=== PATIENT | male | born 1960 | race Hispanic/Latino ===

== ENCOUNTER 2020-06-26 16:12 | Inpatient (IN) | payer SELFPAY ==
--- OUTSIDE RECORDS SUMMARY | 2020-06-26 16:14 | XMS REPORT | Continuity of Care Document ---
:1960 Author Organization [facility] t Address [address] [place] [address] [address] [place] [address] Care Team Providers Name Role Phone Unavailable Unavailable Unavailable Problems This patient has no known problems. Allergies, Adverse Reactions, Alerts This patient has no known allergies or adverse reactions. Medications This patient has no known medications. Procedures This patient has no known procedures. Encounters Start End Encounter Admission Attending Care Care Encounter Source Date/Time Date/Time Type Type Clinicians Facility Department ID 2019-06-22 2019-06-22 Emergency E [id number] [facility] 17:46:00 17:46:00 Results This patient has no known results.
[2020-06-26] MEDS ORDERED: ALBUTEROL INHALER 60 PUFF/8 GM IH ONE (19:10)
[2020-06-26] MEDS ORDERED: METHYLPREDNISOLONE 40 MG INJ ONE (19:10)
[2020-06-26 19:11] LABS: Absolute Lymphocytes (CBC) 0.5 K/uL (0.7-4.9); Basophils % 0.2 % (0-1.3); Hematocrit 43.5 % (39.6-49.0); Lymphocytes % 5.2 % (15.3-44.8); MPV 8.4 fL (7.6-11.3); RBC Red Blood Cell Count 4.81 M/uL (4.33-5.43)
[2020-06-26 19:13] LABS: Protime INR 1.11
[2020-06-26 19:28] LABS: ALT/SGPT 37 U/L (12-78); AST/SGOT 44 U/L (15-37); Albumin 3.1 g/dL (3.4-5.0); Alkaline Phosphatase 118 U/L (45-117); BUN Blood Urea Nitrogen 17 mg/dL (7-18); Bicarbonate 25 mmol/L (21-32); Bilirubin Direct 0.1 mg/dL (0-0.2); Bilirubin Total 0.5 mg/dL (0.2-1.0); Glucose Level 121 mg/dL (74-106); Magnesium 2.7 mg/dL (1.8-2.4); NT PRO-BNP 177 pg/mL (<125); Potassium 4.3 mmol/L (3.5-5.1); Protein, Total 8.2 g/dL (6.4-8.2); Sodium Level 134 mmol/L (136-145); Troponin (Emerg Dept Use Only) < 0.02 ng/mL (0.0-0.045)
[2020-06-26 19:31] LABS: Blood Morphology Comment NOT SEEN (NOT SEEN); Platelet Estimate ADEQ; White Blood Cell Scan OK (OK)
[2020-06-26 20:48] LABS: SARS-COV-2 RT PCR POSITIVE (NEGATIVE)
--- NOTE | 2020-06-26 20:53 | RAD REPORT ---
EXAM DESCRIPTION: RAD - Chest Single View - 06/26/2020 6:36 pm CLINICAL HISTORY: Cough;SOB, spouse is COVID positive COMPARISON: None TECHNIQUE: AP portable chest image was obtained 06/26/2020 6:36 pm . FINDINGS: Lung volumes are low. Bilateral peripheral airspace opacification present worse on the lef t. Upper lung lopez are generally spared. Heart size is mostly obscured by the low lung volumes. No acute vascular engorgement. No measurable pleural effusion and no pneumothorax. No acute bony abnorma lity seen. No acute aortic findings suspected. IMPRESSION: Mild bilateral COVID-19 pneumonia pattern.
--- NOTE | 2020-06-26 21:11 | EDPHYS ---
Physician Documentation [facility] Name: Zafar Meyer Age: 60 yrs Sex: Male : 1960 Arrival Date: 06/26/2020 Time: 16:14 Bed 6 Private MD: Dk Gaytan ED Physician Rodney Palomino HPI: 06/26 18:25 This 60 yrs old Male presents to ER via Wheelchair with complaints of cp Breathing Difficulty, R/O COVID. 18:25 The patient has shortness of breath at rest. cp 18:25 Onset: The symptoms/episode began/occurred 5 day(s) ago. Duration: The symptoms are cp continuous, and are steadily getting worse. The patient's shortness of breath is aggravated by light activity. Associated signs and symptoms: Pertinent positives: non-productive cough, Pertinent negatives: chest pain, fever, vomiting. Patient reports tested positive for COVID-19. Historical: - Allergies: 16:28 No Known Allergies; ca1 - Home Meds: 16:28 None [Active]; ca1 - PMHx: 16:28 High Cholesterol; ca1 - PSHx: 16:28 None; ca1 - Immunization history:: Pneumococcal vaccine is not up to date, Flu vaccine is not up to date. - Social history:: Smoking status: Patient/guardian denies using tobacco, the patient reports quitting approximately 4 years ago. ROS: 18:30 Constitutional: Negative for body aches, fever, poor PO intake. cp 18:30 Eyes: Negative for injury, pain, redness, and discharge. cp 18:30 ENT: Negative for ear pain, sore throat, difficulty swallowing, difficulty handling secretions. 18:30 Cardiovascular: Negative for chest pain, edema, palpitations. 18:30 Respiratory: Positive for cough, "sounds productive", shortness of breath, at rest. Negative for wheezing. 18:30 Abdomen/GI: Negative for abdominal pain, nausea, vomiting, and diarrhea, anorexia. 18:30 : Negative for urinary symptoms. 18:30 Skin: Negative for cellulitis, rash. 18:30 Neuro: Negative for altered mental status, headache, syncope, weakness. 18:30 All other systems are negative. Exam: 18:35 Constitutional: The patient appears in no acute distress, alert, awake, cp non-diaphoretic, non-toxic, well developed, well nourished. 18:35 Head/Face: Normocephalic, atraumatic. cp 18:35 Eyes: Periorbital structures: appear normal, Conjunctiva: normal, no exudate, no injection, Sclera: no appreciated abnormality, Lids and lashes: appear normal, bilaterally. 18:35 ENT: External ear(s): are unremarkable, Nose: is normal, Mouth: Lips: moist, Oral mucosa: pink and intact, moist, Posterior pharynx: Airway: no evidence of obstruction, patent, swelling, is not appreciated, erythema, is not appreciated, exudate, is not appreciated. 18:35 Neck: ROM/movement: is normal, is supple, without pain, no range of motions limitations, no meningismus. 18:35 Chest/axilla: Inspection: normal, Palpation: is normal, no crepitus, no tenderness. 18:35 Cardiovascular: Rate: normal, Rhythm: regular, Edema: is not appreciated, JVD: is not appreciated. 18:35 Respiratory: mild respiratory distress is noted, Respirations: labored breathing, that is mild, intercostal retractions, are absent, Breath sounds: bronchial sounds, that are mild, are heard diffusely, stridor, is not appreciated, wheezing: is not appreciated. 18:35 Abdomen/GI: Inspection: abdomen appears normal, Palpation: abdomen is soft and non-tender, in all quadrants. 18:35 Back: pain, is absent, ROM is normal. 18:35 Neuro: Orientation: to person, place \\T\\ time. Mentation: is normal, Motor: moves all fours, strength is normal. 18:54 ECG was reviewed by the Attending Physician. cp Vital Signs: 16:24 BP 137 / 73; Pulse 90; Resp 18 S; Temp 99(TE); Pulse Ox 93% on R/A; Weight 88.45 kg; ca1 Height 5 ft. 11 in. (180.34 cm) (R); Pain 0/10; 19:00 BP 132 / 66; Pulse 92; Resp 19; Pulse Ox 93% on R/A; hb 20:18 Pulse Ox 86% on R/A; ea 20:26 BP 146 / 63; Pulse 85; Resp 22; Pulse Ox 95% on 2 lpm NC; ea 22:31 BP 126 / 76; Pulse 82; Resp 22; Pulse Ox 97% on 3 lpm NC; ea 16:24 Body Mass Index 27.20 (88.45 kg, 180.34 cm) ca1 20:18 pt placed on 2 L per nasal cannula ea MDM: 18:15 Patient medically screened. cp 18:30 Differential diagnosis: pneumonia, Pneumothorax pulmonary edema, Pulmonary Embolism cp Sepsis. 20:20 ED course: VSS. Patient ambulated in ED and oxygen sats dropped to 86% on RA. Will cp admit for continued treatment. 20:20 Data reviewed: vital signs, nurses notes, lab test result(s), EKG, radiologic studies, cp plain films, and as a result, I will admit patient. Test interpretation: by ED physician or midlevel provider: ECG, plain radiologic studies. Response to treatment: the patient's symptoms have mildly improved after treatment. 21:00 Physician consultation: Jag ALEMAN was called at 21:00, was contacted at 21:00, cp regarding admission, to the telemetry unit. patient's condition. 06/26 18:21 Order name: Basic Metabolic Panel; Complete Time: 19:41 06/26 19:41 Interpretation: Normal except: NA 134; GLUC 121; GFR 84. 06/26 18:21 Order name: CBC with Diff; Complete Time: 19:41 06/26 20:11 Interpretation: Normal except: KRISTIAN% 89.2; LYM% 5.2; LYMA 0.5. 06/26 18:21 Order name: LFT's; Complete Time: 19:41 06/26 19:41 Interpretation: Normal except: AST 44; ALK 118; ALB 3.1; GLOB 5.1; A/G 0.6. 06/26 18:21 Order name: Magnesium; Complete Time: 19:41 cp 06/26 18:21 Order name: NT PRO-BNP; Complete Time: 19:41 cp 06/26 18:21 Order name: PT-INR; Complete Time: 19:17 cp 06/26 19:18 Interpretation: Reviewed. 06/26 18:21 Order name: Troponin (emerg Dept Use Only); Complete Time: 19:41 06/26 19:42 Interpretation: TROPED < 0.02; Reviewed. 06/26 19:27 Order name: CBC Smear Scan; Complete Time: 19:41 EDMS 06/26 20:12 Order name: D-Dimer cp 06/26 20:12 Order name: LAB Add On cp 06/26 20:13 Order name: D-Dimer; Complete Time: 20:56 EDMS 06/26 20:48 Order name: COVID-19/FLU A+B; Complete Time: 20:56 EDMS 06/26 18:21 Order name: XRAY Chest (1 view); Complete Time: 20:56 cp 06/26 18:21 Order name: EKG; Complete Time: 18:23 cp 06/26 18:21 Order name: Cardiac monitoring; Complete Time: 18:57 cp 06/26 18:21 Order name: EKG - Nurse/Tech; Complete Time: 18:57 cp 06/26 18:21 Order name: IV Saline Lock; Complete Time: 18:57 cp 06/26 18:21 Order name: Labs collected and sent; Complete Time: 18:57 cp 06/26 20:56 Order name: CT Chest For PE Angio cp 06/26 20:56 Order name: CRP; Complete Time: 03:13 cp 06/26 20:56 Order name: Ferritin 06/27 09:09 Order name: CBC with Automated Diff EDWV 06/27 09:46 Order name: Basic Metabolic Panel EDWV 06/27 09:46 Order name: C-Reactive Protein EDWV 06/27 09:46 Order name: Magnesium EDWV 06/27 09:46 Order name: Ferritin EDWV 06/26 18:21 Order name: O2 Per Protocol; Complete Time: 18:59 cp 06/26 18:21 Order name: O2 Sat Monitoring; Complete Time: 18:59 cp EC:54 Rate is 86 beats/min. Rhythm is regular. NM interval is normal. QRS interval is normal. cp QT interval is normal. Interpreted by me. Reviewed by me. Administered Medications: 18:57 Drug: SOLU-Medrol 80 mg Route: IVP; Site: right antecubital; hb 22:33 Follow up: Response: No adverse reaction ea 18:59 Drug: Albuterol HFA Inhaler 2 puffs Route: Inhalation; hb Disposition: 06/26/20 21:11 Hospitalization ordered by Ai Stiles for Inpatient Admission. Preliminary diagnosis are Pneumonia due to other specified infectious organisms, Hypoxemia, Coronavirus infection, unspecified. - Bed requested for Telemetry/MedSurg (observation). - Status is Inpatient Admission. ea - Condition is Stable. - Problem is new. - Symptoms have improved. Addendum: 06/29/2020 06:25 Co-signature as Attending Physician, Rodney Palomino MD I agree with the assessment and t w4 plan of care. Signatures: Dispatcher [employer] EDMS KikiyoungJag, LINE DEPARTMENT SUPERVISOR-C LINE DEPARTMENT SUPERVISOR-Cla1 Ron Li PA PA cp Sun Velazquez, RN RN cg Shelby Rush, ALEYDA MAYNARD Shea Owen RN Rodney Middleton ea, MD MD tw4 Nuha Flores RN RN ca1 Corrections: (The following items were deleted from the chart) 06/26 19:49 18:23 Influenza Screen (A \\T\\ B)+BA.LAB.BRZ ordered. EDWV EDMS 19:49 18:23 CORONAVIRUS+MR.LAB.BRZ ordered. EDWV EDMS 20:11 19:41 Normal except: KRISTIAN% 89.2; LYM% 5.2. cp cp 22:00 21:11 Hospitalization Ordered by Ai Stiles MD for Inpatient Admission. Preliminary cg diagnosis is Pneumonia due to other specified infectious organisms; Hypoxemia; Coronavirus infection, unspecified. Bed requested for Telemetry/MedSurg (Inpatient). Status is Inpatient Admission. Condition is Stable. Problem is new. Symptoms have improved. cp 06/27 19:16 06/26 22:00 06/26/2020 21:11 Hospitalization Ordered by Ai Stiles MD for Inpatient cg Admission. Preliminary diagnosis is Pneumonia due to other specified infectious organisms; Hypoxemia; Coronavirus infection, unspecified. Bed requested for [facility] ER HOLD. Status is Inpatient Admission. Condition is Stable. Problem is new. Symptoms have improved. cg 06/27 20:36 19:16 06/26/2020 21:11 Hospitalization Ordered by Ai Stiles MD for Inpatient ea Admission. Preliminary diagnosis is Pneumonia due to other specified infectious organisms; Hypoxemia; Coronavirus infection, unspecified. Bed requested for Telemetry/MedSurg (observation). Status is Inpatient Admission. Condition is Stable. Problem is new. Symptoms have improved. cg
--- NOTE | 2020-06-26 21:11 | ER ---
Nurse's Notes [facility] Name: Zafar Meyer Age: 60 yrs Sex: Male : 1960 Arrival Date: 06/26/2020 Time: 16:14 Bed 6 Private MD: Dk Gaytan Diagnosis: Pneumonia due to other specified infectious organisms;Hypoxemia;Coronavirus infection, unspecified Presentation: 06/26 16:24 Chief complaint: Patient's son or daughter states: Daughter: My mom's admitted for ca1 Covid-19+. My dad started having SOB x 5 days. Coronavirus screen: Client denies travel out of the [place] in the last 14 days. chills, cough unrelated to allergies, diarrhea, difficulty breathing, fatigue, headache, muscle pain, nausea, shortness of breath, sore throat, Client presents with at least one sign or symptom that may indicate coronavirus-19. Standard/surgical mask placed on the client. Provider contacted for isolation considerations. The client denies any previous COVID testing. Ebola Screen: Patient negative for fever greater than or equal to 101.5 degrees Fahrenheit, and additional compatible Ebola Virus Disease symptoms Patient denies exposure to infectious person. Patient denies travel to an Ebola-affected area in the 21 days before illness onset. No symptoms or risks identified at this time. Initial Sepsis Screen: Does the patient meet any 2 criteria? No. Patient's initial sepsis screen is negative. Does the patient have a suspected source of infection? No. Patient's initial sepsis screen is negative. Risk Assessment: Do you want to hurt yourself or someone else? Patient reports no desire to harm self or others. Onset of symptoms was June 26, 2020. 16:24 Method Of Arrival: Wheelchair ca1 16:24 Acuity: ALPHONSE 3 ca1 Historical: - Allergies: 16:28 No Known Allergies; ca1 - Home Meds: 16:28 None [Active]; ca1 - PMHx: 16:28 High Cholesterol; ca1 - PSHx: 16:28 None; ca1 - Immunization history:: Pneumococcal vaccine is not up to date, Flu vaccine is not up to date. - Social history:: Smoking status: Patient/guardian denies using tobacco, the patient reports quitting approximately 4 years ago. Screenin:18 Abuse screen: Denies threats or abuse. Denies injuries from another. Nutritional hb screening: No deficits noted. Tuberculosis screening: No symptoms or risk factors identified. Fall Risk None identified. Assessment: 18:18 General: Appears in no apparent distress. Behavior is calm, cooperative. Pain: Denies hb pain. Neuro: Level of Consciousness is awake, alert, obeys commands, Oriented to person, place, time, situation. Cardiovascular: Capillary refill < 3 seconds Patient's skin is warm and dry. Rhythm is regular. Respiratory: Reports shortness of breath at rest cough that is non-productive, Airway is patent Trachea midline Respiratory effort is even, unlabored, Breath sounds are clear bilaterally. GI: No signs and/or symptoms were reported involving the gastrointestinal system. : No signs and/or symptoms were reported regarding the genitourinary system. EENT: No signs and/or symptoms were reported regarding the EENT system. Derm: Skin is pink, warm \T\ dry. Musculoskeletal: No signs and/or symptoms reported regarding the musculoskeletal system. 20:25 Reassessment: Pt ambulated approximately 50 ft, pt sats at 86% RA. Pt placed on 2 L per ea nasal cannula tolerating well. 20:37 Reassessment: Jennifer (daughter) [phone]. ea 22:31 Reassessment: Patient and/or family updated on plan of care and expected duration. Pain ea level reassessed. Patient is alert, oriented x 3, equal unlabored respirations, skin warm/dry/pink. Pt admitted to ED Hold. Vital Signs: 16:24 BP 137 / 73; Pulse 90; Resp 18 S; Temp 99(TE); Pulse Ox 93% on R/A; Weight 88.45 kg; ca1 Height 5 ft. 11 in. (180.34 cm) (R); Pain 0/10; 19:00 BP 132 / 66; Pulse 92; Resp 19; Pulse Ox 93% on R/A; hb 20:18 Pulse Ox 86% on R/A; ea 20:26 BP 146 / 63; Pulse 85; Resp 22; Pulse Ox 95% on 2 lpm NC; ea 22:31 BP 126 / 76; Pulse 82; Resp 22; Pulse Ox 97% on 3 lpm NC; ea 16:24 Body Mass Index 27.20 (88.45 kg, 180.34 cm) ca1 20:18 pt placed on 2 L per nasal cannula ea ED Course: 16:14 Patient arrived in ED. ag5 16:15 Dk Gaytan DO is Private Physician. ag5 16:28 Triage completed. ca1 16:28 Arm band placed on right wrist. ca1 18:03 Ron Li PA is PHCP. cp 18:03 Rodney Palomino MD is Attending Physician. cp 18:18 Bed in low position. Call light in reach. Side rails up X 1. hb 18:34 XRAY Chest (1 view) In Process Unspecified. EDMS 18:52 Inserted saline lock: 20 gauge in left antecubital area, using aseptic technique. Blood tw2 collected. 19:00 Report given to ALEYDA Moreno and ALEYDA Oneill. tw2 19:11 Pillow given. bus monitor on. Pulse ox on. NIBP on. mh5 19:11 EKG done, by ED staff, reviewed by Ron STEPHENS. [facility] 20:20 Shea Owen, ALEYDA is Primary Nurse. ea 20:25 No provider procedures requiring assistance completed. ea 21:10 Ai Stiles MD is Hospitalizing Provider. cp 21:11 CT Chest For PE Angio In Process Unspecified. EDMS 22:31 Patient admitted, IV remains in place. ea 06/27 06:43 role handed off by Divya Eldridge RN eb Administered Medications: 06/26 18:57 Drug: SOLU-Medrol 80 mg Route: IVP; Site: right antecubital; hb 22:33 Follow up: Response: No adverse reaction ea 18:59 Drug: Albuterol HFA Inhaler 2 puffs Route: Inhalation; hb Outcome: 21:11 Decision to Hospitalize by Provider. cp 22:31 Admitted to ER Hold. Please see [facility] for further documentation. ea 22:31 Condition: stable 22:31 Instructed on the need for admit, Demonstrated understanding of instructions. 06/27 20:36 Patient left the ED. ea Signatures: Dispatcher [employer] EDMS Ron Li PA PA cp Baxter, Heather, RN RN Divya Eldridge RN RN tw2 Sweta Hi 5 Shea Owen RN RN ea Botello, Elizabeth eb Acob, Cheryl, RN RN ca1 Hilton Benavides ag5 Corrections: (The following items were deleted from the chart) 06/26 20:26 20:25 Reassessment: Pt ambulated approximately 50 ft, pt sats at 86% RA ea ea
--- NOTE | 2020-06-26 21:29 | RAD REPORT ---
EXAM DESCRIPTION: CT - Chest For Pe Angio - 06/26/2020 9:12 pm CLINICAL HISTORY: SOB COMPARISON: Chest Single View dated 06/26/2020 TECHNIQUE: Dynamically enhanced 3 mm thick images of the chest were obtained during administration o f approximately 150mL Isovue 370 IV contrast. Coronal and oblique MIP reconstruction images were gene rated and reviewed. Exam utilizes a protocol to evaluate the pulmonary arterial tree. All CT scans are performed using dose optimization technique as appropriate and may include automated exposure control or mA/KV adjustment according to patient size. FINDINGS: No pulmonary emboli are identified. The aorta as imaged shows no acute or suspicious finding. No pericardial thickening or effusion. Peripheral ground-glass opacification present in the mid and lower lung lopez. Each lung apex is spa red. This is a pattern typical for COVID-19 pneumonia. No mass or cavitation. No pleural effusion or pleural thickening. No mediastinal or hilar suspicious masses. No chest wall masses or abnormal axillary lymphadenopathy. IMPRESSION: No pulmonary emboli identified. Mild to moderate COVID-19 pneumonia pattern.
[2020-06-26 21:38] LABS: Ferritin 1080.1 ng/mL (26-388)
--- NOTE | 2020-06-26 23:01 | P.HP ---
Certification for Inpatient Patient admitted to: Inpatient With expected LOS: >2 Midnights Patient will require the following post-hospital care: None Practitioner: I am a practitioner with admitting privileges, knowledge of patient current condition, hospital course, and medical plan of care. Services: Services provided to patient in accordance with Admission requirements found in Title 42 Section 412.3 of the Code of Federal Regulations Patient History Date of Service: 06/26/20 Primary Care Provider: none Reason for admission: COVID pneumonia History of Present Illness: 60-year-old male with no significant past medical history presents emergency department for shortness of breath. Patient has been caring for his who was COVID +. Patient reports 5 days of symptoms including fatigue, chills, diarrhea. Patient presented to the emergency department for evaluation today and tested positive for COVID. Patient was mildly hypoxic on room air saturating in the high 80s, requiring nasal cannula at this time. Lab significant for D-dimer [address] PE protocol negative for pulmonary embolism shows mild to moderate COVID pattern. ED provider wishes to admit patient for further evaluation and management. Allergies No Known Allergies Allergy (Unverified 10/24/16 06:51) - Past Medical/Surgical History -: none -: none Psychosocial/ Personal History: Lives with his - Family History Mother -: Hypertension - Social History Smoking Status: Never smoker Alcohol use: No CD- Drugs: No Caffeine use: Yes Place of Residence: Home Review of Systems General: Chills, Weakness, Malaise Respiratory: Cough, Shortness of Breath Gastrointestinal: Diarrhea Physical Examination - Physical Exam General: Alert, In no apparent distress HEENT: Atraumatic, PERRLA, Mucous membr. moist/pink Neck: Supple, 2+ carotid pulse no bruit, No LAD Respiratory: Normal air movement, Diminished (Bilaterally) Cardiovascular: Regular rate/rhythm, Normal S1 S2 Capillary refill: <2 Seconds Gastrointestinal: Normal bowel sounds, No tenderness, No rebound, No guarding Musculoskeletal: No tenderness Integumentary: No rashes Neurological: Normal speech, Normal strength at 5/5 x4 extr, Normal tone - Studies Laboratory Data (last 24 hrs) 06/26/20 18:52: PT 13.1 H, INR 1.11 06/26/20 18:52: WBC 9.0, Hgb 15.1, Hct 43.5, Plt Count 209 06/26/20 18:52: Sodium 134 L, Potassium 4.3, BUN 17, Creatinine 0.92, Glucose 121 H, Magnesium 2.7 H, Total Bilirubin 0.5, AST 44 H, ALT 37, Alkaline Phosphatase 118 H Assessment and Plan - Plan Assessment COVID pneumonia with hypoxia Plan COVID pneumonia with hypoxia: Continue with IV steroids, supplements. Trend COPD, ferritin levels. Pulmonology consult in place, titrate saturations to greater than 90%. Daily room air saturations to determine when patient is ready to be discharged. DVT prophylaxis with Lovenox 40 mg subcutaneous once daily. Appreciate further input from pulmonology. Discharge Plan: Home Plan to discharge in: 48 Hours - Advance Directives Does patient have a Living Will: No Does patient have a Durable POA for Healthcare: No - Code Status/Comfort Care Code Status Assessed: Yes (Full code) Critical Care: No Time Spent Managing Pts Care (In Minutes): 55
[2020-06-26] MEDS ORDERED: CISATRACURIUM INJECTION 2 MG/ML (10 ML Vial) IV ONE (23:28)
[2020-06-26] MEDS ORDERED: IVERMECTIN 3 MG TABLET PO ONE (23:29)
[2020-06-26] MEDS ORDERED: ONDANSETRON 4 MG/2 ML VIAL IV PRN (23:29)
[2020-06-26] MEDS ORDERED: ACETAMINOPHEN 500 MG TAB PO PRN (23:29)
[2020-06-27] MEDS ORDERED: BENZONATATE 100 MG CAP PO ONE (05:58)
[2020-06-27] MEDS ORDERED: HYDROCODONE/APAP 5/325 MG TAB ONE (05:59)
[2020-06-27] MEDS: BENZONATATE 100 MG CAP PO PRN ×2 (06:02→21:05)
[2020-06-27] MEDS: HYDROCODONE/APAP 5/325 MG TAB PO PRN ×2 (06:02→21:05)
[2020-06-27] MEDS: ZINC SULFATE 220 MG CAP PO SCH (09:00)
[2020-06-27] MEDS: ASCORBIC ACID 500 MG TABLET PO SCH ×4 (09:00→21:06)
[2020-06-27] MEDS ORDERED: METHYLPREDNISOLONE 40 MG INJ IV SCH (09:00)
[2020-06-27] MEDS ORDERED: ENOXAPARIN 40 MG/0.4 ML SQ SCH (09:00)
[2020-06-27] MEDS: THIAMINE HCL 100 MG TABLET PO SCH (09:00)
[2020-06-27] MEDS: FAMOTIDINE 20 MG TAB PO SCH ×2 (09:00→21:06)
[2020-06-27] MEDS: ASPIRIN EC 81 MG TAB PO SCH (09:00)
[2020-06-27 09:09] LABS: Basophils % 0.3 % (0-1.3); Hematocrit 44.4 % (39.6-49.0); MPV 8.4 fL (7.6-11.3); RBC Red Blood Cell Count 4.86 M/uL (4.33-5.43)
[2020-06-27] MEDS ORDERED: ASPIRIN EC 81 MG TAB PO ONE (09:23)
[2020-06-27] MEDS ORDERED: ASCORBIC ACID 500 MG TABLET ONE ×2 (09:23→15:44)
[2020-06-27] MEDS ORDERED: ZINC SULFATE 220 MG CAP ONE (09:23)
[2020-06-27] MEDS ORDERED: METHYLPREDNISOLONE 40 MG INJ ONE (09:24)
[2020-06-27] MEDS ORDERED: FAMOTIDINE 20 MG TAB ONE (09:24)
[2020-06-27] MEDS ORDERED: ENOXAPARIN 40 MG/0.4 ML SQ ONE (09:24)
[2020-06-27] MEDS ORDERED: THIAMINE HCL 100 MG TABLET ONE (09:33)
[2020-06-27 09:46] LABS: Ferritin 1115.5 ng/mL (26-388); Magnesium 2.9 mg/dL (1.8-2.4)
--- NOTE | 2020-06-27 11:37 | P.PN ---
Subjective Date of Service: 06/27/20 Primary Care Provider: none Chief Complaint: COVID pneumonia Subjective: No new changes, No C/O voiced - patient report improving symptoms , staff weaning down 02 - Tolerating po well - daughter called and report pt c/w of SOB earlier this am Physical Examination - Vital Signs Temperature: 97.7 F Blood Pressure: 119/76 Pulse: 60 Respirations: 19 Pulse Ox (%): 97 - Physical Exam General: Alert, In no apparent distress, Oriented x3 HEENT: Atraumatic, Normocephalic, PERRLA Neck: Supple, 2+ carotid pulse no bruit, JVD not distended Respiratory: Clear to auscultation bilaterally, Normal air movement Cardiovascular: No edema, Normal pulses, Regular rate/rhythm, Normal S1 S2 Gastrointestinal: Normal bowel sounds, Soft and benign, Non-distended Musculoskeletal: No clubbing, No swelling, No contractures Neurological: Normal gait, Normal speech, Normal strength at 5/5 x4 extr, Normal tone - Studies Laboratory Data (last 24 hrs) 06/26/20 18:52: PT 13.1 H, INR 1.11 06/26/20 18:52: WBC 9.0, Hgb 15.1, Hct 43.5, Plt Count 209 06/26/20 18:52: Sodium 134 L, Potassium 4.3, BUN 17, Creatinine 0.92, Glucose 121 H, Magnesium 2.7 H, Total Bilirubin 0.5, AST 44 H, ALT 37, Alkaline Phosphatase 118 H Assessment & Plan Physician Review: Patient Assessed, Agree with Above Assessment and Plan Physician Review Additional Text: COVID pneumonia with hypoxia Plan COVID pneumonia with hypoxia: -Improving 02 sat although patient earlier self report SOB -weaning down 02 to 2 L from 4 L overnight now - Continue with IV steroids, supplements. Trend COPD, still elevated ferritin levels. - DVT prophylaxis with Lovenox 40 mg subcutaneous once daily. Appreciate further input from pulmonology. -c/w Ivermectin -Daughter d.w Discharge Plan: Home Plan to discharge in: 48 Hours
[2020-06-27] MEDS ORDERED: METHYLPREDNISOLONE 125 MG INJ ONE (15:44)
[2020-06-27] MEDS: METHYLPREDNISOLONE 40 MG INJ IV SCH (17:00)
[2020-06-27] MEDS: ATORVASTATIN 40 MG TAB PO SCH (21:06)
[2020-06-28] MEDS: METHYLPREDNISOLONE 40 MG INJ IV SCH ×3 (01:26→17:09)
[2020-06-28] MEDS ORDERED: LORazepam 2 MG/ML VIAL IV ONE (03:19)
[2020-06-28 03:53] LABS: Basophils % 0.1 % (0-1.3); Hematocrit 42.9 % (39.6-49.0); Lymphocytes % 7.1 % (15.3-44.8); MPV 8.8 fL (7.6-11.3); RBC Red Blood Cell Count 4.69 M/uL (4.33-5.43)
[2020-06-28 04:12] LABS: C-Reactive Protein 77.7 mg/L (<3.00); Ferritin 1272.1 ng/mL (26-388)
[2020-06-28] MEDS: BENZONATATE 100 MG CAP PO PRN ×2 (06:25→20:38)
--- NOTE | 2020-06-28 08:56 | P.CNS ---
Date of Consult: 06/27/20 Primary Care Provider: none Chief Complaint: COVID pneumonia History of Present Illness: Patient is 60 years of age no medical problems admitted with worsening dyspnea was tested positive recently had pretty chills and diarrhea still complaining of shortness of breath is no evidence of pulmonary embolism Allergies No Known Allergies Allergy (Verified 06/28/20 04:17) Home Medications: NK [No Home Meds] 06/28/20 - Past Medical/Surgical History -: none -: none Psychosocial/ Personal History: Lives with his - Family History Mother Medical History: Hypertension - Social History Alcohol use: No CD- Drugs: No Caffeine use: Yes Place of Residence: Home Review of Systems 10-point ROS is otherwise unremarkable General: Weakness Respiratory: Shortness of Breath Physical Examination Temp Pulse Resp BP Pulse Ox 97.2 F 73 32 H 127/68 91 06/28/20 04:00 06/28/20 04:00 06/28/20 04:00 06/28/20 04:00 06/28/20 04:00 General: Alert, In no apparent distress, Mild distress Respiratory: Clear to auscultation bilaterally Cardiovascular: No edema, Regular rate/rhythm, Normal S1 S2 Gastrointestinal: Normal bowel sounds, Soft and benign - Problems (1) Pneumonia due to 2019 novel coronavirus Current Visit: Yes Status: Acute Plan: Patient is 60 years of age admitted with pneumonia due to domínguez virus patient has minimal ground-glass changes bilaterally ferritin CRP levels elevated continue with ivermectin add Remdesmir continue to monitor elapsed x-rays all reviewed
[2020-06-28] MEDS ORDERED: IVERMECTIN 3 MG TABLET PO ONE (09:00)
--- NOTE | 2020-06-28 09:01 | P.PN ---
Subjective Date of Service: 06/28/20 (Hospitalist) Primary Care Provider: none Chief Complaint: COVID pneumonia Patient is still complaining of weakness and shortness of breath still hypoxic Review of Systems General: Weakness Respiratory: Shortness of Breath Physical Examination - Vital Signs Temperature: 97.2 F Blood Pressure: 127/68 Pulse: 73 Respirations: 32 Pulse Ox (%): 91 - Physical Exam General: Alert, Oriented x3, Mild distress Respiratory: Clear to auscultation bilaterally Cardiovascular: No edema, Normal S1 S2 Assessment & Plan - Problems (Diagnosis) (1) Pneumonia due to 2019 novel coronavirus Current Visit: Yes Status: Acute Plan: Patient admitted with respiratory failure from domínguez virus continue to monitor is a 90% 4 L of nasal cannula oxygen CRP levels declining ferritin level still very elevated continue with ivermectin home oxygen check his home O2 again possible discharge tomorrow Physician Review: Patient Assessed, Agree with Above Assessment and Plan
[2020-06-28] MEDS: ASPIRIN EC 81 MG TAB PO SCH (10:10)
[2020-06-28] MEDS: ZINC SULFATE 220 MG CAP PO SCH (10:10)
[2020-06-28] MEDS: FAMOTIDINE 20 MG TAB PO SCH ×2 (10:10→20:37)
[2020-06-28] MEDS: VITAMIN D 1000 UNIT TAB PO SCH (10:16)
[2020-06-28] MEDS: THIAMINE HCL 100 MG TABLET PO SCH (10:17)
[2020-06-28] MEDS: ASCORBIC ACID 500 MG TABLET PO SCH ×4 (10:17→20:38)
[2020-06-28] MEDS: APIXABAN 5 MG TABLET PO SCH ×2 (10:26→20:38)
[2020-06-28] MEDS: Remdesivir 200 MG in NA CHLORIDE 0.9% 250 ML IV ONE ×2 (14:30)
[2020-06-28] MEDS ORDERED: Remdesivir 200 MG in NA CHLORIDE 0.9% 250 ML IV ONE (16:00)
[2020-06-28] MEDS: ATORVASTATIN 40 MG TAB PO SCH (20:38)
[2020-06-28] MEDS: MELATONIN 3 MG TABLET PO SCH (20:40)
[2020-06-28] MEDS: HYDROCODONE/APAP 5/325 MG TAB PO PRN (20:40)
[2020-06-29] MEDS: METHYLPREDNISOLONE 40 MG INJ IV SCH ×2 (02:05→08:02)
[2020-06-29 04:26] LABS: Absolute Lymphocytes (CBC) 0.8 K/uL (0.7-4.9); Basophils % 0.1 % (0-1.3); Hematocrit 39.9 % (39.6-49.0); Lymphocytes % 5.9 % (15.3-44.8); RBC Red Blood Cell Count 4.42 M/uL (4.33-5.43)
[2020-06-29 04:54] LABS: Ferritin 1208.4 ng/mL (26-388); Magnesium 3.3 mg/dL (1.8-2.4); Potassium 4.3 mmol/L (3.5-5.1)
[2020-06-29] MEDS: APIXABAN 5 MG TABLET PO SCH ×2 (08:01→21:34)
[2020-06-29] MEDS: ZINC SULFATE 220 MG CAP PO SCH (08:01)
[2020-06-29] MEDS: ASPIRIN EC 81 MG TAB PO SCH (08:02)
[2020-06-29] MEDS: FAMOTIDINE 20 MG TAB PO SCH ×2 (08:02→21:34)
[2020-06-29] MEDS: BENZONATATE 100 MG CAP PO PRN ×2 (08:07→21:50)
[2020-06-29] MEDS: HYDROCODONE/APAP 5/325 MG TAB PO PRN ×2 (08:07→21:34)
[2020-06-29] MEDS: ASCORBIC ACID 500 MG TABLET PO SCH ×4 (08:07→21:50)
[2020-06-29] MEDS: THIAMINE HCL 100 MG TABLET PO SCH (08:07)
[2020-06-29] MEDS: VITAMIN D 1000 UNIT TAB PO SCH (08:08)
[2020-06-29 08:46] LABS: Albumin 2.6 g/dL (3.4-5.0); Bilirubin Direct 0.1 mg/dL (0-0.2); Bilirubin Total 0.5 mg/dL (0.2-1.0)
[2020-06-29] MEDS: Remdesivir 100 MG in NA CHLORIDE 0.9% 250 ML IV SCH (14:08)
[2020-06-29] MEDS: METHYLPREDNISOLONE 125 MG INJ IV SCH (19:27)
[2020-06-29] MEDS: ATORVASTATIN 40 MG TAB PO SCH (21:50)
[2020-06-29] MEDS: MELATONIN 3 MG TABLET PO SCH (21:50)
[2020-06-30] MEDS: METHYLPREDNISOLONE 125 MG INJ IV SCH ×3 (00:12→16:49)
[2020-06-30] MEDS ORDERED: LORAZEPAM 1 MG TABLET PO ONE (02:35)
[2020-06-30 04:15] LABS: Albumin 2.5 g/dL (3.4-5.0); Bilirubin Direct 0.2 mg/dL (0-0.2); Bilirubin Total 0.6 mg/dL (0.2-1.0); Protein, Total 6.6 g/dL (6.4-8.2)
[2020-06-30] MEDS: BENZONATATE 100 MG CAP PO PRN ×3 (04:42→21:58)
[2020-06-30] MEDS: Remdesivir 100 MG in NA CHLORIDE 0.9% 250 ML IV SCH (08:40)
[2020-06-30] MEDS: VITAMIN D 1000 UNIT TAB PO SCH (08:47)
[2020-06-30] MEDS: FAMOTIDINE 20 MG TAB PO SCH ×2 (08:47→21:42)
[2020-06-30] MEDS: ASPIRIN EC 81 MG TAB PO SCH (08:47)
[2020-06-30] MEDS: THIAMINE HCL 100 MG TABLET PO SCH (08:47)
[2020-06-30] MEDS: APIXABAN 5 MG TABLET PO SCH ×2 (08:47→21:41)
[2020-06-30] MEDS: ZINC SULFATE 220 MG CAP PO SCH (08:47)
[2020-06-30] MEDS: ASCORBIC ACID 500 MG TABLET PO SCH ×4 (08:47→21:43)
--- NOTE | 2020-06-30 09:43 | P.PN ---
Subjective Date of Service: 06/29/20 Patient emotionally upset because his is not doing well clinically. Otherwise medically he is stable with no new complaints. He does start having some pain when he takes a deep breath. Otherwise he feels like he is better. Review of Systems 10-point ROS is otherwise unremarkable Physical Examination - Vital Signs Temperature: 97.6 F Blood Pressure: 131/71 Pulse: 79 Respirations: 18 Pulse Ox (%): 95 - Physical Exam General: Alert, In no apparent distress, Oriented x3 Respiratory: Diminished, Crackles/rales Cardiovascular: Regular rate/rhythm, Normal S1 S2, No murmurs Gastrointestinal: Normal bowel sounds, Soft and benign, Non-distended, No tenderness Musculoskeletal: No clubbing, No swelling, No tenderness Neurological: Sensation intact, Cranial nerves 3-12 intact - Studies Medications List Reviewed: Yes Assessment & Plan - Problems (Diagnosis) (1) Pneumonia due to 2019 novel coronavirus Status: Acute - Plan 1. Continue with IV steroids/Continue with antiretrovirals 2. Patient also getting Ivermectin 3. Repeat chest x-ray if symptoms are progressively worsening 4. O2 per protocol 5. Pulmonary consultation appreciated 6. Continue with albuterol inhaler therapy as needed 7. GI and DVT prophylaxis Discharge Plan: Home Plan to discharge in: Greater than 2 days - Advance Directives Does patient have a Living Will: No Does patient have a Durable POA for Healthcare: No - Code Status/Comfort Care Code Status Assessed: Yes Code Status: Full Code Physician Review: Patient Assessed, Agree with Above Assessment and Plan Critical Care: No Time Spent Managing PTS Care (In Minutes): 35
[2020-06-30] MEDS ORDERED: FUROSEMIDE 20 MG/ 2ML VIAL IV ONE (12:23)
--- NOTE | 2020-06-30 12:24 | P.PN ---
Subjective Date of Service: 06/30/20 Primary Care Provider: none Chief Complaint: COVID pneumonia No change patient is still hypoxic short of breath requiring high concentrations of oxygen Review of Systems General: Weakness Respiratory: Shortness of Breath Physical Examination - Vital Signs Temperature: 97.6 F Blood Pressure: 131/71 Pulse: 79 Respirations: 18 Pulse Ox (%): 95 - Studies Medications List Reviewed: Yes Assessment & Plan - Problems (Diagnosis) (1) Pneumonia due to 2019 novel coronavirus Current Visit: Yes Status: Acute Plan: Respiratory failure from domínguez virus laboratory data is improving now noted markers and declining titrate sat to 90% vital signs stable 1 dose of Lasix Physician Review: Patient Assessed, Agree with Above Assessment and Plan
[2020-06-30] MEDS: MELATONIN 3 MG TABLET PO SCH (21:00)
[2020-06-30] MEDS: ATORVASTATIN 40 MG TAB PO SCH (21:41)
[2020-07-01] MEDS: METHYLPREDNISOLONE 125 MG INJ IV SCH ×3 (01:05→16:20)
[2020-07-01] MEDS: BENZONATATE 100 MG CAP PO PRN (02:46)
[2020-07-01 03:59] LABS: Absolute Lymphocytes (CBC) 0.7 K/uL (0.7-4.9); Basophils % 0.2 % (0-1.3); Hematocrit 42.3 % (39.6-49.0); Lymphocytes % 6.4 % (15.3-44.8); MPV 8.4 fL (7.6-11.3); RBC Red Blood Cell Count 4.65 M/uL (4.33-5.43)
[2020-07-01 04:14] LABS: Albumin 2.6 g/dL (3.4-5.0); Bilirubin Direct 0.2 mg/dL (0-0.2); Bilirubin Total 0.8 mg/dL (0.2-1.0); C-Reactive Protein 16.7 mg/L (<3.00); Ferritin 1027.9 ng/mL (26-388); Magnesium 3.2 mg/dL (1.8-2.4); Phosphorus 3.9 mg/dL (2.5-4.9); Potassium 4.4 mmol/L (3.5-5.1); Protein, Total 6.6 g/dL (6.4-8.2)
[2020-07-01 08:00] LABS: Blood Morphology Comment NOT SEEN (NOT SEEN); Platelet Estimate ADEQ; White Blood Cell Scan OK (OK)
[2020-07-01] MEDS: VITAMIN D 1000 UNIT TAB PO SCH (08:18)
[2020-07-01] MEDS: ASCORBIC ACID 500 MG TABLET PO SCH ×4 (08:18→20:44)
[2020-07-01] MEDS: ASPIRIN EC 81 MG TAB PO SCH (08:18)
[2020-07-01] MEDS: FAMOTIDINE 20 MG TAB PO SCH ×2 (08:18→20:43)
[2020-07-01] MEDS: ZINC SULFATE 220 MG CAP PO SCH (08:18)
[2020-07-01] MEDS: APIXABAN 5 MG TABLET PO SCH ×2 (08:18→20:44)
[2020-07-01] MEDS: Remdesivir 100 MG in NA CHLORIDE 0.9% 250 ML IV SCH (08:24)
[2020-07-01] MEDS: THIAMINE HCL 100 MG TABLET PO SCH (10:36)
--- NOTE | 2020-07-01 12:53 | P.PN ---
Subjective Date of Service: 07/01/20 Primary Care Provider: none Chief Complaint: COVID pneumonia Patient is improving oxygen requirements are declining Review of Systems Respiratory: Shortness of Breath Physical Examination - Vital Signs Temperature: 97.7 F Blood Pressure: 120/58 Pulse: 71 Respirations: 30 Pulse Ox (%): 89 - Studies Medications List Reviewed: Yes Assessment & Plan - Problems (Diagnosis) (1) Pneumonia due to 2019 novel coronavirus Current Visit: Yes Status: Acute Plan: Respiratory failure from domínguez virus patient is improving he is not down to 50% FiO2 by a try nasal cannula oxygen inflammatory markers are improving no change in present medication patient has add ivermectin Physician Review: Patient Assessed, Agree with Above Assessment and Plan
[2020-07-01] MEDS: MELATONIN 3 MG TABLET PO SCH (20:44)
[2020-07-01] MEDS: ATORVASTATIN 40 MG TAB PO SCH (20:44)
[2020-07-02] MEDS: METHYLPREDNISOLONE 125 MG INJ IV SCH ×3 (03:32→20:54)
[2020-07-02 04:21] LABS: Albumin 2.6 g/dL (3.4-5.0); Bilirubin Direct 0.2 mg/dL (0-0.2); Bilirubin Total 0.9 mg/dL (0.2-1.0); Protein, Total 6.4 g/dL (6.4-8.2)
[2020-07-02 04:48] VITALS: BMI 29.4
[2020-07-02] MEDS: FAMOTIDINE 20 MG TAB PO SCH ×2 (08:53→20:53)
[2020-07-02] MEDS: BENZONATATE 100 MG CAP PO PRN ×2 (08:53→12:02)
[2020-07-02] MEDS: VITAMIN D 1000 UNIT TAB PO SCH (08:54)
[2020-07-02] MEDS: THIAMINE HCL 100 MG TABLET PO SCH ×2 (08:54→12:02)
[2020-07-02] MEDS: APIXABAN 5 MG TABLET PO SCH ×2 (08:54→20:52)
[2020-07-02] MEDS: ZINC SULFATE 220 MG CAP PO SCH (08:54)
[2020-07-02] MEDS: ASCORBIC ACID 500 MG TABLET PO SCH ×4 (08:54→20:54)
[2020-07-02] MEDS: ASPIRIN EC 81 MG TAB PO SCH (08:54)
[2020-07-02] MEDS: Remdesivir 100 MG in NA CHLORIDE 0.9% 250 ML IV SCH (09:07)
--- NOTE | 2020-07-02 12:48 | P.PN ---
Subjective Date of Service: 07/02/20 Primary Care Provider: none Chief Complaint: COVID pneumonia Patient has improved significantly feels better oxygen requirements have decline Review of Systems General: Weakness Respiratory: Shortness of Breath Physical Examination - Vital Signs Temperature: 97.7 F Blood Pressure: 120/58 Pulse: 71 Respirations: 30 Pulse Ox (%): 89 - Studies Medications List Reviewed: Yes Assessment & Plan - Problems (Diagnosis) (1) Pneumonia due to 2019 novel coronavirus Current Visit: Yes Status: Acute Plan: Respiratory failure doing much better plan to discharge oxygen ordered continue with prednisone 20 b.i.d. for a week and 10 b.i.d. patient has had 2 doses of ivermectin will need to be anti coagulated vital signs stable follow-up with me in 1 week Physician Review: Patient Assessed, Agree with Above Assessment and Plan
[2020-07-02] MEDS: ATORVASTATIN 40 MG TAB PO SCH (20:52)
[2020-07-02] MEDS: MELATONIN 3 MG TABLET PO SCH (20:54)
[2020-07-03] MEDS: BENZONATATE 100 MG CAP PO PRN ×3 (00:30→23:02)
[2020-07-03 06:41] LABS: Absolute Lymphocytes (CBC) 0.7 K/uL (0.7-4.9); Basophils % 0.2 % (0-1.3); Hematocrit 43.6 % (39.6-49.0); MPV 8.9 fL (7.6-11.3); RBC Red Blood Cell Count 4.75 M/uL (4.33-5.43)
[2020-07-03 06:56] LABS: ALT/SGPT 72 U/L (12-78); AST/SGOT 32 U/L (15-37); Albumin 2.5 g/dL (3.4-5.0); Alkaline Phosphatase 88 U/L (45-117); BUN Blood Urea Nitrogen 34 mg/dL (7-18); Bicarbonate 25 mmol/L (21-32); Bilirubin Total 0.9 mg/dL (0.2-1.0); Ferritin 992.6 ng/mL (26-388); Glucose Level 158 mg/dL (74-106); Magnesium 2.4 mg/dL (1.8-2.4); NT PRO-BNP 118 pg/mL (<125); Phosphorus 4.3 mg/dL (2.5-4.9); Protein, Total 6.4 g/dL (6.4-8.2); Sodium Level 138 mmol/L (136-145)
--- NOTE | 2020-07-03 07:02 | P.PN ---
Date of Service: 06/30/20 Subjective Patient tearful this morning. 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 They are both understandably upset about the passing of her mother. He is a little more hypoxic today. Told him to really work on his breathing as much as he is able to work on it Review of Systems 10-point ROS is otherwise unremarkable Physical Examination - Vital Signs reviewed - Physical Exam General: Alert, In no apparent distress, Oriented x3 Respiratory: Diminished, Crackles/rales Cardiovascular: Regular rate/rhythm, Normal S1 S2, No murmurs Gastrointestinal: Normal bowel sounds, Soft and benign, Non-distended, No tenderness Musculoskeletal: No clubbing, No swelling, No tenderness Neurological: No significant abnormalities Assessment & Plan - Problems (Diagnosis) (1) Pneumonia due to 2019 novel coronavirus Current Visit: Yes Status: Acute - Plan Continue with plan of care as mentioned below 1. Continue with IV steroids and IV antivirals 2. Patient also getting Ivermectin 3. Repeat chest x-ray if symptoms are worsening 4. O2 per protocol 5. Pulmonary consultation appreciated 6. Continue with albuterol inhaler therapy as needed 7. GI and DVT prophylaxis Discharge Plan: Home Plan to discharge in: Greater than 2 days
--- NOTE | 2020-07-03 07:03 | P.PN ---
Date of Service: 07/01/20 Subjective Patient feeling better today. Oxygen requirements are still elevated. Patient has 70% FiO2. Continue working on decreasing throughout the day. Review of Systems 10-point ROS is otherwise unremarkable Physical Examination - Vital Signs reviewed - Physical Exam General: Alert, In no apparent distress, Oriented x3 Respiratory: Diminished, Crackles/rales Cardiovascular: Regular rate/rhythm, Normal S1 S2, No murmurs Gastrointestinal: Normal bowel sounds, Soft and benign, Non-distended, No tenderness Musculoskeletal: No clubbing, No swelling, No tenderness Neurological: No significant abnormalities Assessment & Plan - Problems (Diagnosis) (1) Pneumonia due to 2019 novel coronavirus Current Visit: Yes Status: Acute - Plan Continue with plan of care as mentioned below 1. Continue with IV steroids 2. Completed antivirals 3. Slowly start weaning down the oxygen as symptoms are improving 4. O2 per protocol 5. Pulmonary consultation appreciated 6. Continue with albuterol inhaler therapy as needed 7. GI and DVT prophylaxis Discharge Plan: Home Plan to discharge in: Greater than 2 days
--- NOTE | 2020-07-03 07:04 | P.PN ---
Date of Service: 07/02/20 Subjective Patient feeling much better. He actually spoke to me for most of the conversation using [place]. Told him that once he is under 4 L oxygen we will let him go home. He wants to be home for his 's Review of Systems 10-point ROS is otherwise unremarkable Physical Examination - Vital Signs reviewed - Physical Exam General: Alert, In no apparent distress, Oriented x3 Respiratory: Diminished, Crackles/rales Cardiovascular: Regular rate/rhythm, Normal S1 S2, No murmurs Gastrointestinal: Normal bowel sounds, Soft and benign, Non-distended, No tenderness Musculoskeletal: No clubbing, No swelling, No tenderness Neurological: No significant abnormalities Assessment & Plan - Problems (Diagnosis) (1) Pneumonia due to 2019 novel coronavirus Current Visit: Yes Status: Acute - Plan Continue with plan of care as mentioned below 1. Continue with IV steroids; if oxygen continues to improve switch to oral steroids. Currently on 6 L oxygen. 2. Completed antiviral therapy 3. GI and DVT prophylaxis Discharge Plan: Home Plan to discharge in: 24 hr
[2020-07-03 07:38] LABS: Blood Morphology Comment NOT SEEN (NOT SEEN); Platelet Estimate ADEQ; White Blood Cell Scan OK (OK)
[2020-07-03] MEDS: ASPIRIN EC 81 MG TAB PO SCH (08:38)
[2020-07-03] MEDS: FAMOTIDINE 20 MG TAB PO SCH ×2 (08:39→20:30)
[2020-07-03] MEDS: APIXABAN 5 MG TABLET PO SCH ×2 (08:39→20:29)
[2020-07-03] MEDS: ASCORBIC ACID 500 MG TABLET PO SCH ×4 (08:39→20:30)
[2020-07-03] MEDS: ZINC SULFATE 220 MG CAP PO SCH (08:39)
[2020-07-03] MEDS: VITAMIN D 1000 UNIT TAB PO SCH (08:39)
[2020-07-03] MEDS: METHYLPREDNISOLONE 125 MG INJ IV SCH ×2 (08:39→20:28)
[2020-07-03] MEDS: THIAMINE HCL 100 MG TABLET PO SCH (09:23)
--- NOTE | 2020-07-03 13:00 | P.PN ---
Subjective Date of Service: 07/03/20 Primary Care Provider: none Chief Complaint: COVID pneumonia Patient is doing a lot better he is now on nasal cannula oxygen Review of Systems General: Weakness Respiratory: Shortness of Breath Physical Examination - Vital Signs Temperature: 99.4 F Blood Pressure: 113/58 Pulse: 55 Respirations: 18 Pulse Ox (%): 94 - Studies Medications List Reviewed: Yes Assessment & Plan - Problems (Diagnosis) (1) Pneumonia due to 2019 novel coronavirus Current Visit: Yes Status: Acute Plan: Respiratory failure patient has improved significantly he is oxygenation is satisfactory on 4 L nasal cannula oxygen recommend discharge on anticoagulation prednisone follow-up with me 1-2 weeks patient to monitor his pulse ox Dc oxygen is sat greater than 95% on room air Physician Review: Patient Assessed, Agree with Above Assessment and Plan
[2020-07-03] MEDS: MELATONIN 3 MG TABLET PO SCH (20:29)
[2020-07-03] MEDS: ATORVASTATIN 40 MG TAB PO SCH (20:30)
[2020-07-03 21:59] VITALS: O2SAT 92
[2020-07-04] MEDS: METHYLPREDNISOLONE 125 MG INJ IV SCH (08:09)
[2020-07-04] MEDS: ZINC SULFATE 220 MG CAP PO SCH (08:10)
[2020-07-04] MEDS: THIAMINE HCL 100 MG TABLET PO SCH (08:10)
[2020-07-04] MEDS: VITAMIN D 1000 UNIT TAB PO SCH (08:10)
[2020-07-04] MEDS: APIXABAN 5 MG TABLET PO SCH (08:10)
[2020-07-04] MEDS: ASPIRIN EC 81 MG TAB PO SCH (08:10)
[2020-07-04] MEDS: ASCORBIC ACID 500 MG TABLET PO SCH ×2 (08:10→12:13)
[2020-07-04] MEDS: FAMOTIDINE 20 MG TAB PO SCH (09:33)
[2020-07-04 13:59] VITALS: TEMP 97.6
--- NOTE | 2020-07-08 01:05 | P.PN ---
Subjective Date of Service: 07/03/20 Patient is clinically doing better. Patient denies any new complaints. Review of Systems 10-point ROS is otherwise unremarkable Physical Examination - Vital Signs Temperature: 97.6 F Blood Pressure: 117/66 Pulse: 62 Respirations: 26 Pulse Ox (%): 95 - Physical Exam General: Alert, In no apparent distress, Oriented x3 Respiratory: Clear to auscultation bilaterally, Normal air movement Cardiovascular: Regular rate/rhythm, Normal S1 S2, No murmurs Gastrointestinal: Normal bowel sounds, Soft and benign, Non-distended, No tenderness Musculoskeletal: No clubbing, No swelling, No tenderness Neurological: Normal strength at 5/5 x4 extr, Sensation intact, Cranial nerves 3-12 intact - Studies Medications List Reviewed: Yes Assessment & Plan - Problems (Diagnosis) (1) Pneumonia due to 2019 novel coronavirus Status: Acute - Plan Continue with plan of care as mentioned below 1. Continue with IV steroids; tapering dose at this time 2. Patient also getting Ivermectin 3. Out of bed and ambulate 4. O2 per protocol 5. Pulmonary consultation appreciated 6. Continue with albuterol inhaler therapy as needed 7. GI and DVT prophylaxis Discharge Plan: Home Plan to discharge in: Greater than 2 days - Advance Directives Does patient have a Living Will: No Does patient have a Durable POA for Healthcare: No - Code Status/Comfort Care Code Status: Full Code Physician Review: Patient Assessed, Agree with Above Assessment and Plan Critical Care: No Time Spent Managing PTS Care (In Minutes): 35
[2020-07-08 01:08] VITALS: BP 131/71
--- NOTE | 2020-07-08 01:14 | P.DS ---
Discharge Date: 07/04/20 Primary Care Provider: nery Disposition: ROUTINE DISCHARGE Discharge Condition: GOOD Reason for Admission: COVID pneumonia Consultations: Pulmonary - Problems (1) Pneumonia due to 2019 novel coronavirus Status: Acute Brief History of Present Illness: Patient is a 60-year-old gentleman who was admitted to the hospital with dif ficulty breathing. Patient's testing revealed COVID-19 Pneumonia. Patient was admitted to the hospital for further evaluation. Hospital Course: Patient did well during hospital stay. Unfortunately patient's during this hospitalization. It did make patient very upset during his recovery. Most likely prolonged his hospitalization. His oxygenation improved gradually over his hospital stay. At this time he is doing well and is stable for discharge home. Vital Signs/Physical Exam: Temp Pulse Resp BP Pulse Ox 97.6 F 79 18 131/71 95 07/08/20 01:07 07/08/20 01:07 07/08/20 01:07 07/08/20 01:07 07/08/20 01:07 General: Alert, In no apparent distress, Oriented x3 Laboratory Data at Discharge: WBC 12.40 K/uL (4.3-10.9) H D 07/03/20 06:07 Hgb 14.4 g/dL (13.6-17.9) 07/03/20 06:07 Hct 43.6 % (39.6-49.0) 07/03/20 06:07 Plt Count 396 K/uL (152-406) 07/03/20 06:07 PT 13.1 SECONDS (9.5-12.5) H 06/26/20 18:52 INR 1.11 06/26/20 18:52 Sodium 138 mmol/L (136-145) 07/03/20 06:07 Potassium 5.0 mmol/L (3.5-5.1) 07/03/20 06:07 BUN 34 mg/dL (7-18) H 07/03/20 06:07 Creatinine 0.84 mg/dL (0.55-1.3) 07/03/20 06:07 Glucose 158 mg/dL (74-106) H 07/03/20 06:07 Phosphorus 4.3 mg/dL (2.5-4.9) 07/03/20 06:07 Magnesium 2.4 mg/dL (1.8-2.4) D 07/03/20 06:07 Total Bilirubin 0.9 mg/dL (0.2-1.0) 07/03/20 06:07 AST 32 U/L (15-37) 07/03/20 06:07 ALT 72 U/L (12-78) 07/03/20 06:07 Alkaline Phosphatase 88 U/L (45-117) 07/03/20 06:07 Home Medications: RX: Albuterol Inhaler [Ventolin Inhaler*] 2 puff IH Q6H PRN #1 hfa.aer.ad 07/04/20 RX: Apixaban [Eliquis] 5 mg PO BID #14 tablet 07/04/20 RX: Ascorbic Acid [Vitamin C*] 500 mg PO QID #30 tablet 07/04/20 RX: Atorvastatin Calcium [Lipitor] 40 mg PO BEDTIME #30 tab 07/04/20 RX: Benzonatate [Tessalon Perle*] 100 mg PO Q8HR PRN #30 cap 07/04/20 RX: Cholecalciferol (Vitamin D3) [Vitamin D 1000 Iu Tab*] 3,000 unit PO DAILY # 30 tab 07/04/20 RX: Famotidine [Pepcid*] 40 mg PO BID #30 tab 07/04/20 RX: Melatonin [Melatonin*] 10 mg PO BEDTIME #20 tablet 07/04/20 RX: Thiamine HCl [Vitamin B-1*] 200 mg PO DAILY #30 tablet 07/04/20 RX: Zinc Sulfate [Zinc Sulfate*] 220 mg PO DAILY #30 cap 07/04/20 predniSONE [Deltasone] 20 mg PO BID #30 tab 07/04/20 New Medications: RX: Apixaban [Eliquis] 5 mg PO BID #14 tablet RX: Atorvastatin Calcium [Lipitor] 40 mg PO BEDTIME #30 tab RX: Melatonin [Melatonin*] 10 mg PO BEDTIME #20 tablet RX: Famotidine [Pepcid*] 40 mg PO BID #30 tab predniSONE [Deltasone] 20 mg PO BID #30 tab RX: Benzonatate [Tessalon Perle*] 100 mg PO Q8HR PRN #30 cap PRN Reason: Cough RX: Albuterol Inhaler [Ventolin Inhaler*] 2 puff IH Q6H PRN #1 hfa.aer.ad PRN Reason: Shortness Of Breath RX: Thiamine HCl [Vitamin B-1*] 200 mg PO DAILY #30 tablet RX: Ascorbic Acid [Vitamin C*] 500 mg PO QID #30 tablet RX: Cholecalciferol (Vitamin D3) [Vitamin D 1000 Iu Tab*] 3,000 unit PO DAILY #30 tab RX: Zinc Sulfate [Zinc Sulfate*] 220 mg PO DAILY #30 cap Physician Discharge Instructions: -OK TO DC IV AND DC HOME -FOLLOW-UP WITH PCP IN 1-2 WEEKS -FOLLOW-UP WITH Pulmonary IN 1-2 WEEKS -PLEASE MAKE SURE ALL DIAGNOSTIC STUDIES ARE AVAILABLE AND HAVE BEEN REVIEWED WITH PATIENT PRIOR TO DISCHARGE -RETURN TO THE ER IF symptoms worsen -CALL DR. MAYES AT [phone] IF ANY QUESTIONS REGARDING HOSPITAL STAY -PLEASE CALL THE FLOOR AT [phone] IF ANY MEDICATION OR NURSING QUESTIONS Diet: AHA Activity: Fall precautions Followup: Odell Santiago MD [ACTIVE - CAN ADMIT] - 1-2 Weeks (call for appointment) Dk Gaytan DO [Primary Care Provider] - 1-2 Weeks (call for appointment) Time spent managing pt's care (in minutes): 35
== END 2020-07-04 15:55 | disposition home or self-care (01) | DRG 177 ==
LOC: ER 16:12 → ERHOLD 21:07 → 4TH 06-27 20:24
PROVIDERS: ADMIT Internal Medicine; ATTEND Hospitalist
PROC: XW033E5 Introduction of Remdesivir Anti-infective into Peripheral Vein, Percutaneous Approach, New Technology Group 5 (ICD-10-PCS; principal; 2020-06-26)
DX: U07.1 COVID-19 (principal); J12.82 Pneumonia due to coronavirus disease 2019; J96.01 Acute respiratory failure with hypoxia; J44.0 Chronic obstructive pulmonary disease with (acute) lower respiratory infection; R00.0 Tachycardia, unspecified; Z87.891 Personal history of nicotine dependence
CPT/HCPCS: 0240U; 36415; 71045; 71275; 80048; 80053; 80076; 82248; 82565; 82728; 82947; 83605; 83615; 83735; 83880; 84100; 84145; 84450; 84460; 84484; 85025; 85379; 85610; 86140; 93005; 94002; 94003; 94760; 96374; 99285; J1650; J1940; J2920; J2930; J7050; Q9967

== ENCOUNTER 2020-09-02 06:38 | Day surgery (SDC) | payer OTHER ==
[2020-09-02] MEDS ORDERED: propofoL 200 MG/20 ML VIAL IV ONE (07:35)
[2020-09-02] MEDS ORDERED: LIDOCAINE 2% MPF 5 ML VIAL ONE (07:36)
[2020-09-02] MEDS ORDERED: GLYCOPYRROLATE 0.2 MG/ML SYR ONE (07:36)
--- NOTE | 2020-09-02 08:49 | ENDO RPT ---
[address], [address] COLONOSCOPY PROCEDURE REPORT EXAM DATE: 09/02/2020 PATIENT NAME: Zafar Mccoy MR #: [id number] BIRTHDATE: 1960 ATTENDING: Ramiro Hi MD STATUS: outpatient SUPERVISOR ELECTRIC: Katina MULLER and Isha Reese CST INDICATIONS: The patient is a 60 yr old Male here for a colonoscopy due to colon cancer screening PROCEDURE PERFORMED: Colonoscopy MEDICATIONS: Per Anesthesia. ESTIMATED BLOOD LOSS: None CONSENT: The patient understands the risks and benefits of the procedure and understands that these risks include, but are not limited to: sedation, allergic reaction, infection, perforation and/or bleeding. Alternative means of evaluation and treatment include, among others: physical exam, x-rays, and/or surgical intervention. The patient elects to proceed with this endoscopic procedure. DESCRIPTION OF PROCEDURE: During intra-op preparation period all mechanical medical equipment was checked for proper function. Hand hygiene and appropriate measures for infection prevention was taken. Procedure, possible complications, alternatives including, but not limited to possibility of bleeding, perforation, tear, infection, sepsis, need for surgery, need for blood transfusion, were explained to the patient. After the risks, benefits and alternatives of the procedure were thoroughly explained, Informed consent was verified, confirmed and timeout was successfully executed by the treatment team. The patient was placed in the left lateral position. A digital rectal exam was performed and revealed external hemorrhoids. After appropriate level of anesthesia, the scope was passed. The [id number] ([id number]) endoscope was introduced through the anus and advanced to the cecum, which was identified by transillumination from the light source, the appendix, and the ileocecal valve. The quality of the prep was good. The instrument was then slowly withdrawn as the colon was fully examined. Scope withdrawal time was . COLON FINDINGS: Diverticula was found throughout the entire examined colon. The opening was medium sized. Retroflexed views revealed no abnormalities. The scope was then completely withdrawn from the patient and the procedure terminated. ADVERSE EVENTS: There were no complications. IMPRESSIONS: 1. Diverticula throughout the entire examined colon 2. External hemorrhoids 3. Internal hemorrhoids RECOMMENDATIONS: 1. follow-up: office 1 week(s) 2. no seeds in diet RECALL: Return in 5-10 year(s) for Colonoscopy. Ramiro Hi MD eSigned: Ramiro Hi MD 09/02/2020 8:49 AM cc: CPT CODES: ICD9 CODES: PATIENT NAME: Zafar Mccoy MR#: [id number]
[2020-09-02 09:15] VITALS: O2SAT 100
[2020-09-02 09:16] VITALS: BP 113/63; TEMP 96.7
== END 2020-09-02 09:30 | disposition home or self-care (01) ==
LOC: OR 06:38
PROVIDERS: ATTEND Surgery
PROC: 0DJD8ZZ Inspection of Lower Intestinal Tract, Via Natural or Artificial Opening Endoscopic (ICD-10-PCS; principal; 2020-09-02 08:45)
DX: Z12.11 Encounter for screening for malignant neoplasm of colon (principal); K64.4 Residual hemorrhoidal skin tags; K64.8 Other hemorrhoids; K57.30 Diverticulosis of large intestine without perforation or abscess without bleeding; Z20.822 Contact with and (suspected) exposure to COVID-19
CPT/HCPCS: 45378; U0003; J2704

== ENCOUNTER 2021-04-21 20:02 | Emergency (ER) | payer OTHER ==
--- OUTSIDE RECORDS SUMMARY | 2021-04-21 20:06 | XMS REPORT | Continuity of Care Document ---
:1960 Author Organization [facility] t Address [address] [place] [address] [address] [place] [address] Care Team Providers Name Role Phone DEONDRE CHRISTIANSON Attending Clinician Unavailable Doctor Unassigned, Name Attending Clinician Unavailable Tha Degroot DO Attending Clinician Krystle Kang Attending Clinician KRYSTLE CHRISTOPHER Attending Clinician Unavailable Phillip CHRISTIANSON Admitting Clinician Unavailable Payers Payer Name Policy Type Policy Number Effective Date Expiration Date S ource Problems Condition Condition Condition Status Onset Resolution Last Treating Co mments Source Name Details Category Date Date Treatment Clinician Date Rectal Rectal Disease Active Overview: Univer s bleeding bleeding 3-16 Formattin ity of 00:00: g of this [place] 00 note Medical might be Branch different from the original. Added automatic ally from request for surgery [id number] No known No known Disease Unive rs active active ity of problems problems [facility] Allergies, Adverse Reactions, Alerts Allergy Allergy Status Severity Reaction(s) Onset Inactive Treating Comm ents Source Name Type Date Date Clinician NO KNOWN Drug Active Univers ALLERGIE Class ity of S [facility] Social History Social Habit Start Date Stop Date Quantity Comments Source Exposure to Not sure [facility] SARS-CoV-2 (event) Medica l Branch Sex Assigned At [birth year] [facility] 00:00:00 00:00:00 [facility] Smoking Status Start Date Stop Date Source Unknown if ever smoked [facility] Medications Ordered Filled Start Stop Current Ordering Indication Dosage Frequency Signature Comments Components Source Medication Medication Date Date Medication? Clinician (SIG) Name Name No known No [facility] No [facility] medications [facility] No known No Univers medications ity of [facility] No known No Univers medications ity of [facility] No known No Univers medications it of [facility] Vital Signs Vital Name Observation Time Observation Value Comments Source Systolic blood 2020-08-17 18:29:00 151 mm[Hg] Univer sity of pressure [facility] Diastolic blood 2020-08-17 18:29:00 84 mm[Hg] Unive rsity of pressure [facility] Heart rate 2020-08-17 18:29:00 77 /min Universi ty of [facility] Body temperature 2020-08-17 18:29:00 35.56 Alisha Univ ersity [facility] Respiratory rate 2020-08-17 18:29:00 18 /min [facility] Body weight 2020-08-17 18:29:00 83.915 kg Universi ty [facility] Oxygen saturation in 2020-08-17 18:29:00 97 /min [facility] Arterial blood by [facility] Pulse oximetry [place] Procedures Procedure Date / Time Performed Performing Clinician [facility] e REFERRAL- 2020-09-28 05:01:00 Doctor Unassigned, No [facility] REQUEST/RESPONSE Name [facility] Encounters Start End Encounter Admission Attending Care Care Encounter Source Date/Time Date/Time Type Type Clinicians Facility Department ID 2021-04-04 Outpatient R MEGHAN [facility] GIEfrain [id number] Univers 06:58:57 DEONDRE ity [facility] 2020-09-28 2020-09-28 Orders Doctor KEYLA [id number] Univers 00:00:00 00:00:00 Only Unassigned, CRUZ [id number] ity of [facility] [id number] [place] as [id number] [facility] 009 Branch 2020-08-25 2020-08-25 Patient Zane MDLAURA [id number] Univers 00:00:00 00:00:00 Outreach [facility] [id number] i ty of [facility] [id number] [id number] Ne dical 388 Branch 2020-08-24 2020-08-24 Outpatient R [facility] [id number] Univers 08:30:00 08:30:00 [id number] [facility] 2020-08-21 2020-08-21 Outpatient R [facility] [id number] Univers 13:30:00 13:30:00 [id number] [facility] 2020-08-17 2020-08-17 Office Ricacrdo [facility] [id number] Univers 13:22:02 13:52:02 Visit [facility] [id number] [facility] [id number] [facility] AT [phone] Ne dicwerner JIMÉNEZ 072 [facility] 2020-08-17 2020-08-17 Outpatient R RICCARDO [facility] [id number] Univers 13:30:00 13:30:00 JOSE barnes [facility] 2019-06-22 2019-06-22 Emergency E [facility] [id number] [facility] 17:46:00 17:46:00 Results This patient has no known results.
[2021-04-21] MEDS ORDERED: ONDANSETRON 4 MG/2 ML VIAL ONE (21:16)
[2021-04-21] MEDS ORDERED: MECLIZINE HCL 12.5 MG TAB ONE (21:16)
[2021-04-21 21:32] LABS: Absolute Lymphocytes (CBC) 1.4 K/uL (0.7-4.9); Basophils % 0.6 % (0-1.3); Hematocrit 46.5 % (39.6-49.0); Lymphocytes % 18.9 % (15.3-44.8); MPV 7.8 fL (7.6-11.3); RBC Red Blood Cell Count 5.03 M/uL (4.33-5.43)
[2021-04-21 21:55] LABS: ALT/SGPT 27 U/L (12-78); AST/SGOT 20 U/L (15-37); Albumin 3.8 g/dL (3.4-5.0); Alkaline Phosphatase 147 U/L (45-117); BUN Blood Urea Nitrogen 16 mg/dL (7-18); Bicarbonate 26 mmol/L (21-32); Bilirubin Direct 0.1 mg/dL (0-0.2); Bilirubin Total 0.8 mg/dL (0.2-1.0); Glucose Level 111 mg/dL (74-106); Magnesium 2.6 mg/dL (1.8-2.4); NT PRO-BNP 35 pg/mL (<125); Potassium 3.9 mmol/L (3.5-5.1); Protein, Total 7.8 g/dL (6.4-8.2); Sodium Level 142 mmol/L (136-145); Troponin (Emerg Dept Use Only) < 0.02 ng/mL (0.0-0.045)
--- NOTE | 2021-04-21 21:59 | RAD REPORT ---
EXAM DESCRIPTION: CT - Head Brain Wo Cont - 04/21/2021 9:45 pm CLINICAL HISTORY: DIZZINESS, stroke-like symptoms COMPARISON: Head angio dated 04/21/2021 TECHNIQUE: Axial 5 mm thick images of the head were obtained without IV contrast. All CT scans are performed using dose optimization technique as appropriate and may include automated exposure control or mA/KV adjustment according to patient size. FINDINGS: No intracranial hemorrhage, mass, edema or shift of mid-line structures. No acute infarcti on changes seen. No abnormal extra-axial fluid collections. Ventricles are normal. Mastoid air cells and visualized portions of the paranasal sinuses are clear. No acute bony findings. IMPRESSION: Negative non-contrast CT head examination.
--- NOTE | 2021-04-21 22:00 | RAD REPORT ---
EXAM DESCRIPTION: CT - Head angio - 04/21/2021 9:45 pm CLINICAL HISTORY: DIZZINESS TECHNIQUE: During dynamic enhancement using nonionic IV contrast, axial 1 millimeter thick images of the head were obtained. Sagittal and axial reconstruction images were generated using MIP technique and reviewed. All CT scans are performed using dose optimization technique as appropriate and may include automated exposure control or mA/KV adjustment according to patient size. COMPARISON: CT head same date FINDINGS: No aneurysm or vascular malformation identified. Major venous sinuses are patent. No stenosis, named branch occlusion, vasculitis or other significant vascular finding identifiable. IMPRESSION: Negative CT angio head examination.
--- NOTE | 2021-04-21 22:01 | RAD REPORT ---
EXAM DESCRIPTION: CT - Neck Angio - 04/21/2021 9:45 pm CLINICAL HISTORY: dizziness TECHNIQUE: During dynamic enhancement using nonionic IV contrast, axial 2 mm thick images of the nec k were obtained. Sagittal and axial reconstruction images were generated using MIP technique and revi ewed. All CT scans are performed using dose optimization technique as appropriate and may include automated exposure control or mA/KV adjustment according to patient size. COMPARISON: CT head same date, CT angio same date FINDINGS: No aneurysm or vascular malformation identified. No carotid or vertebral dissection. No aortic arch or great vessel origin abnormality seen. Vertebral artery origins unremarkable as well . No stenosis, vasculitis or other significant carotid artery finding. Mild tortuosity of the right i nternal carotid artery noted. No focal abnormality of either vertebral artery. Basilar artery is norm al. IMPRESSION: Negative CT angio neck examination.
--- NOTE | 2021-04-21 22:02 | RAD REPORT ---
EXAM DESCRIPTION: RAD - Chest Single View - 04/21/2021 9:39 pm CLINICAL HISTORY: dizziness COMPARISON: None TECHNIQUE: AP portable chest image was obtained 04/21/2021 9:39 pm . FINDINGS: Lungs are clear. Heart and vasculature are normal. No measurable pleural effusion and no p neumothorax. No acute bony abnormality seen. No acute aortic findings suspected. IMPRESSION: No acute cardiopulmonary process.
--- NOTE | 2021-04-21 23:04 | ER ---
Nurse's Notes [facility] Name: Zafar Meyer Age: 60 yrs Sex: Male : 1960 Arrival Date: 04/21/2021 Time: 20:06 Bed 20 Private MD: Diagnosis: Vertigo Presentation: 04/21 20:10 Chief complaint: Patient states: 175/90 yesterday and now 170/94; no hx of high bp, pt jh5 gets light headed when he bends over. Coronavirus screen: Vaccine status: Patient reports receiving the 2nd dose of the covid vaccine. Client denies travel out of the [place] in the last 14 days. Ebola Screen: Patient negative for fever greater than or equal to 101.5 degrees Fahrenheit, and additional compatible Ebola Virus Disease symptoms Patient denies exposure to infectious person. Patient denies travel to an Ebola-affected area in the 21 days before illness onset. No symptoms or risks identified at this time. Initial Sepsis Screen: Does the patient meet any 2 criteria? No. Patient's initial sepsis screen is negative. Does the patient have a suspected source of infection? No. Patient's initial sepsis screen is negative. Risk Assessment: Do you want to hurt yourself or someone else? Patient reports no desire to harm self or others. Onset of symptoms was April 20, 2021. 20:10 Method Of Arrival: Ambulatory [facility] 20:10 Acuity: ALPHONSE 3 jh5 Triage Assessment: 20:13 General: Appears in no apparent distress. comfortable, Behavior is calm, cooperative, jh5 appropriate for age. Pain: Denies pain. 20:15 Neuro: No deficits noted. Level of Consciousness is awake, alert, obeys commands, jh5 Oriented to person, place, time, situation, Appropriate for age Speech is normal. Cardiovascular: No deficits noted. Capillary refill < 3 seconds Patient's skin is warm and dry. Respiratory: Airway is patent Trachea midline Respiratory effort is even, unlabored, Respiratory pattern is regular, symmetrical. Historical: - Allergies: 20:13 No Known Allergies; [facility] - Home Meds: 20:13 None [Active]; 5 - PMHx: 20:13 High Cholesterol; [facility] - Immunization history:: Adult Immunizations up to date. - Social history:: Smoking status: Patient denies any tobacco usage or history of. Screenin:13 Abuse screen: Denies threats or abuse. Denies injuries from another. Nutritional 5 screening: No deficits noted. Tuberculosis screening: No symptoms or risk factors identified. Fall Risk None identified. Assessment: 20:52 Reassessment: Patient appears in no apparent distress at this time. Resting quietly in cc4 bed; c/o intermittent vertigo since yesterday. General: Appears in no apparent distress. Behavior is calm, cooperative. Pain: Denies pain. Neuro: No deficits noted. Level of Consciousness is awake, alert, obeys commands, Oriented to person, place, time, situation. Cardiovascular: No deficits noted. Heart tones S1 S2 Capillary refill < 3 seconds Patient's skin is warm and dry. Rhythm is sinus rhythm. Respiratory: No deficits noted. Airway is patent Breath sounds are clear bilaterally. GI: No signs and/or symptoms were reported involving the gastrointestinal system. : No signs and/or symptoms were reported regarding the genitourinary system. EENT: No signs and/or symptoms were reported regarding the EENT system. Derm: No deficits noted. Skin is intact, is healthy with good turgor. Musculoskeletal: No deficits noted. Capillary refill < 3 seconds, Range of motion: intact in all extremities, Family member sitting \\T\\ bedside. 21:10 Reassessment: Patient appears in no apparent distress at this time. # 20 g angiocath cc4 inserted right AC x 1 attempt per [place] metal technician with blood drawn \\T\\ sent to lab, samantha. well; EKG done; CM monitoring NSR with no ectopy. 21:20 Reassessment: Patient appears in no apparent distress at this time. medicated as cc4 ordered; PCXR done per wool grader.. 21:25 Reassessment: Patient appears in no apparent distress at this time. To CT via stretcher.cc4 21:40 Reassessment: Patient appears in no apparent distress at this time. Returned from CT cc4 via stretcher. 22:00 Reassessment: Patient appears in no apparent distress at this time. Resting \\T\\ talking cc4 to family member; reports "feeling better". Vital Signs: 20:10 BP 153 / 83; Pulse 75; Resp 16; Temp 98.7; Pulse Ox 99% ; Weight 88.45 kg; Height 5 ft. jh5 10 in. (177.80 cm); 20:52 BP 143 / 89; Pulse 66; Resp 20; Pulse Ox 100% on R/A; cc4 21:00 BP 137 / 80; Pulse 64; Resp 18; Pulse Ox 100% on R/A; cc4 22:00 BP 130 / 94; Pulse 64; Resp 18; Pulse Ox 98% on R/A; cc4 23:00 BP 125 / 76; Pulse 57; Resp 20 S; Pulse Ox 98% on R/A; cc4 23:30 BP 140 / 83; Pulse 66; Resp 20; Temp 97.9; Pulse Ox 99% on R/A; cc4 20:10 Body Mass Index 27.98 (88.45 kg, 177.80 cm) [facility] ED Course: 20:06 [facility]13 Triage completed. [facility] 20:14 Arm band placed on left wrist. [facility] 20:15 Patient has correct armband on for positive identification. Bed in low position. Call [facility] light in reach. Side rails up X 1. 20:17 Mickey Pierre PA is PHCP. [facility] 20:17 Ron Mendiola MD is Attending Physician. [facility] 21:00 Bette Thomas, ALEYDA is Primary Nurse. cc4 21:20 Inserted saline lock: 20 gauge in right antecubital area, using aseptic technique. ds4 Blood collected. 21:22 CT Neck Angio Sent. cc4 21:22 CT Head Angio Sent. cc4 21:22 CT Head Brain wo Cont Sent. cc4 21:22 XRAY Chest (1 view) Sent. cc4 21:23 Troponin (emerg Dept Use Only) Sent. cc4 21:23 PT-INR Sent. cc4 21:23 Magnesium Sent. cc4 21:23 LFT's Sent. cc4 21:23 Basic Metabolic Panel Sent. cc4 21:23 CBC with Diff Sent. cc4 21:39 XRAY Chest (1 view) In Process Unspecified. EDMS 21:44 CT Head Brain wo Cont In Process Unspecified. EDMS 21:44 CT Head Angio In Process Unspecified. EDMS 21:45 CT Neck Angio In Process Unspecified. EDMS 23:03 Gabriela Weiss MD is Referral Physician. [facility] 23:30 No provider procedures requiring assistance completed. cc4 23:30 IV discontinued, intact, bleeding controlled, No redness/swelling at site. Pressure cc4 dressing applied. Administered Medications: 21:20 Drug: Meclizine 25 mg Route: PO; cc4 23:30 Follow up: Response: No adverse reaction; Marked relief of symptoms cc4 21:20 Drug: Zofran (Ondansetron) 4 mg Route: IVP; Site: right antecubital; cc4 23:30 Follow up: Response: No adverse reaction cc4 Outcome: 23:03 Discharge ordered by MD. jones 23:30 Discharged to home ambulatory. cc4 23:30 Condition: improved 23:30 Discharge instructions given to patient, Instructed on discharge instructions, follow up and referral plans. medication usage, Demonstrated understanding of instructions, follow-up care, medications, Prescriptions given X 1. 23:41 Patient left the ED. cc4 Signatures: Dispatcher [employer] EDMS Mickey Pierre PA PA jmm Swanson, Donovan ds4 Isha Brown Bette Benton, RN RN cc4 Isha Grant RN RN jh5
--- NOTE | 2021-04-21 23:04 | EDPHYS ---
Physician Documentation [facility] Name: Zafar Meyer Age: 60 yrs Sex: Male : 1960 Arrival Date: 04/21/2021 Time: 20:06 Bed 20 Private MD: ED Physician Ron Mendiola HPI: 04/21 20:17 This 60 yrs old Male presents to ER via Ambulatory with complaints of High jmm Blood Pressure. 20:17 The patient has elevated blood pressure and discovered this at home. Onset: The jmm symptoms/episode began/occurred acutely, yesterday. Modifying factors: The symptoms are aggravated by activity, movement. The patient has not experienced similar symptoms in the past. This is a 60-year-old male with a history of hyperlipidemia the presents emerged department with complaints of acute onset dizziness which occurred while bending over yesterday. Patient had an episode which lasted for approximately a minute and described it as if the room were spinning. Symptoms began again today mainly with changes in position. Denies history of CVA.. Historical: - Allergies: 20:13 No Known Allergies; [facility] - Home Meds: 20:13 None [Active]; [facility] - PMHx: 20:13 High Cholesterol; [facility] - Immunization history:: Adult Immunizations up to date. - Social history:: Smoking status: Patient denies any tobacco usage or history of. ROS: 20:17 Constitutional: Negative for fever, chills, and weight loss. jmm 20:17 Respiratory: Negative for shortness of breath, cough, wheezing, and pleuritic chest pain. 20:17 Cardiovascular: Negative for chest pain. 20:17 Neuro: Positive for dizziness. 20:17 All other systems are negative. Exam: 20:17 Constitutional: This is a well developed, well nourished patient who is awake, alert, jmm and in no acute distress. Head/Face: atraumatic. 20:17 Neck: Trachea midline, Supple Chest/axilla: Normal chest wall appearance and motion. Cardiovascular: Regular rate and rhythm. No edema appreciated Respiratory: Normal respirations, no respiratory distress appreciated Abdomen/GI: Non distended, soft Back: Normal ROM Skin: General appearance color normal MS/ Extremity: Moves all extremities, no obvious deformities appreciated, no edema noted to the lower extremities Neuro: Awake and alert, normal gait Psych: Behavior is normal, Mood is normal, Patient is cooperative and pleasant 20:17 Eyes: Extraocular movements: intact throughout, Nystagmus: nystagmus with fast component noted, bilaterally. 20:17 ENT: TM's: not visable, because of cerumen. Vital Signs: 20:10 BP 153 / 83; Pulse 75; Resp 16; Temp 98.7; Pulse Ox 99% ; Weight 88.45 kg; Height 5 ft. 5 10 in. (177.80 cm); 20:52 BP 143 / 89; Pulse 66; Resp 20; Pulse Ox 100% on R/A; cc4 21:00 BP 137 / 80; Pulse 64; Resp 18; Pulse Ox 100% on R/A; cc4 22:00 BP 130 / 94; Pulse 64; Resp 18; Pulse Ox 98% on R/A; cc4 23:00 BP 125 / 76; Pulse 57; Resp 20 S; Pulse Ox 98% on R/A; cc4 23:30 BP 140 / 83; Pulse 66; Resp 20; Temp 97.9; Pulse Ox 99% on R/A; cc4 20:10 Body Mass Index 27.98 (88.45 kg, 177.80 cm) [facility] MDM: 20:17 Patient medically screened. [facility] 23:02 Data reviewed: vital signs, nurses notes. Counseling: I had a detailed discussion with robert the patient and/or guardian regarding: the historical points, exam findings, and any diagnostic results supporting the discharge/admit diagnosis, lab results, radiology results, the need for outpatient follow up, to return to the emergency department if symptoms worsen or persist or if there are any questions or concerns that arise at home. ED course: Physical exam findings most likely consistent with peripheral vertigo. Patient states feeling much better after meclizine. Patient advised to follow-up with neuro and ENT for evaluation otherwise given strict return precautions. Patient and family understood and agrees plan of care.. 04/21 20:51 Order name: Basic Metabolic Panel; Complete Time: 22:01 [facility] 04/21 20:51 Order name: CBC with Diff; Complete Time: 22:01 [facility] 04/21 20:51 Order name: LFT's; Complete Time: 22: [facility] 04/21 20:51 Order name: Magnesium; Complete Time: 22: [facility] 04/21 20:51 Order name: NT PRO-BNP; Complete Time: 22: [facility] 04/21 20:51 Order name: PT-INR; Complete Time: 22: [facility] 04/21 20:51 Order name: Troponin (emerg Dept Use Only); Complete Time: 22: [facility] 04/21 20:51 Order name: XRAY Chest (1 view); Complete Time: 22:04 [facility] 04/21 20:51 Order name: EKG; Complete Time: 20:52 [facility] 04/21 20:51 Order name: CT Head Brain wo Cont; Complete Time: 22: [facility] 04/21 20:51 Order name: CT Head Angio; Complete Time: 22:04 [facility] 04/21 20:51 Order name: CT Neck Angio; Complete Time: 22: [facility] 04/21 20:51 Order name: Cardiac monitoring; Complete Time: 21:22 [facility] 04/21 20:51 Order name: EKG - Nurse/Tech; Complete Time: 21:24 [facility] 04/21 20:51 Order name: IV Saline Lock; Complete Time: 21:23 [facility] 04/21 20:51 Order name: Labs collected and sent; Complete Time: 21:23 [facility] 04/21 20:51 Order name: O2 Per Protocol; Complete Time: 21: [facility] 04/21 20:51 Order name: O2 Sat Monitoring; Complete Time: 21:23 [facility] Administered Medications: 21:20 Drug: Meclizine 25 mg Route: PO; cc4 23:30 Follow up: Response: No adverse reaction; Marked relief of symptoms cc4 21:20 Drug: Zofran (Ondansetron) 4 mg Route: IVP; Site: right antecubital; cc4 23:30 Follow up: Response: No adverse reaction cc4 Disposition: 04/22 07:20 Co-signature as Attending Physician, Ron Mendiola MD I agree with the assessment and darlene plan of care. Disposition Summary: 04/21/21 23:03 Discharge Ordered Location: Home [facility] Condition: Stable [facility] Diagnosis - Vertigo [facility] Followup: [facility] - With: Gabriela Weiss MD - When: 2 - 3 days - Reason: Recheck today's complaints, Continuance of care, Re-evaluation by your physician Discharge Instructions: - Discharge Summary Sheet jmm - Benign Positional Vertigo jmm - Vertigo jmm Forms: - Medication Reconciliation Form jmm - Thank You Letter jmm - Antibiotic Education jmm - Prescription Opioid Use jmm Prescriptions: - Meclizine 25 mg Oral Tablet - take 1 tablet by ORAL route every 8 hours As needed; 30 tablet; Refills: 0, jmm Product Selection Permitted Signatures: Dispatcher [employer] Ron Vance MD MD cha Mickail, Joel, PA PA jmm Cooper, Christie, ALEYDA RN cc4 Isha Grant RN RN jh5
[2021-04-22 01:14] VITALS: BP 140/83; TEMP 97.9; O2SAT 99
== END 2021-04-21 23:41 | disposition home or self-care (01) ==
LOC: ER 20:02
DX: R42 Dizziness and giddiness (principal); E78.00 Pure hypercholesterolemia, unspecified
CPT/HCPCS: 85025; 80048; 36415; 83735; 85610; 80076; 84484; 83880; 70450; 70496; 70498; 71045; Q9967; J2405; 82565; 93005